=== PATIENT | female | born 2000 | race Caucasian/White ===

== ENCOUNTER 2022-02-17 14:45 | Emergency (ER) | payer OTHER ==
[~2022-02-17] VITALS: Ht 170.2 cm; Wt 55.8 kg
[2022-02-17] MEDS ORDERED: ZITHROMAX500 MG PO (18:47)
[2022-02-17] MEDS ORDERED: DEXAMETHASONE4 MG PO (18:47)
== END 2022-02-17 20:37 | disposition home or self-care (01) ==
LOC: ER 14:45
DX: J40 Bronchitis, not specified as acute or chronic (principal)